=== PATIENT | female | born 1995 | race Native Hawaiian/Other Pacific Islander ===

== ENCOUNTER 2022-10-14 12:00 | Emergency (ER) | payer OTHER ==
[~2022-10-14] VITALS: Ht 157.5 cm; Wt 38.6 kg
[2022-10-14 12:00] VITALS: BP 96/63; TEMP 97.8
[2022-10-14 12:47] LABS: PLATELET COUNT 267 K/uL (152-353)
[2022-10-14 13:01] LABS: POTASSIUM 3.9 mmol/L (3.6-5.2)
== END 2022-10-14 16:50 | disposition home or self-care (01) ==
LOC: ED 12:28
PROVIDERS: Emergency Medicine
DX: N39.0 Urinary tract infection, site not specified (principal); N94.89 Other specified conditions associated with female genital organs and menstrual cycle
CPT/HCPCS: 36415; 80053; 81000; 81025; 82150; 83605; 83690; 85027; 87077; 87086; 87088; 87186; 96361; 96365; 96375; 96376; 99284; J0696; J1170; J2405; Q9963